=== PATIENT | male | born 1980 | race Two or more races ===

== ENCOUNTER 2018-11-13 11:20 | Emergency (ER) | payer OTHER ==
[~2018-11-13] VITALS: Ht 167.6 cm; Wt 108.9 kg
--- NOTE | 2018-11-13 11:26 | NUR ---
DR HARDIN AT BEDSIDE
--- NOTE | 2018-11-13 11:27 | NUR ---
DEEDEE, FROM [place], C/O BOTH ARM AND FACE TINGLING/NUMBNESS, HAVING ANXIETY ATTACK, TO ER BED 11, HOOKED TO MONITOR, CHANGED TO GOWN, PROVIDED W WARM BLANKET, AWAITING MD CLAYTON.
[2018-11-13 11:44] LABS: BASOPHILS % (AUTO) 0.6 % (0.0-2.0); EOSINOPHILS % (AUTO) 2.2 % (0.0-6.0); HEMATOCRIT 49 % (39-51); LYMPHOCYTES # (AUTO) 1.6 /CMM (0.8-4.8); LYMPHOCYTES % (AUTO) 26.4 % (20.0-44.0); MEAN CORPUSCULAR HGB CONC 35 g/dl (31.0-36.0); MEAN CORPUSCULAR VOLUME 92 fL (80-96); MONOCYTES # (AUTO) 0.5 /CMM (0.1-1.30); MONOCYTES % (AUTO) 8.8 % (2.0-12.0); NEUTROPHILS # (AUTO) 3.8 /CMM (1.8-8.9); PLATELET COUNT (AUTO) 219 /CMM (150-450); RED BLOOD CELL COUNT(AUTO) 5.32 MIL/uL (4.5-6.0); WHITE BLOOD COUNT (AUTO) 6.1 K/uL (4.3-11.0)
[2018-11-13 11:50] LABS: CALCIUM, SERUM 9.1 mg/dL (8.5-10.1); CARBON DIOXIDE 26 mmol/L (21-32); CHLORIDE 101 mmol/L (98-107); CREATININE 0.9 mg/dL (0.6-1.3); GLUCOSE 159 mg/dL (74-106); POTASSIUM 3.4 mmol/L (3.5-5.1); SODIUM SERUM 138 mmol/L (136-145); UREA NITROGEN, BLOOD 14 mg/dL (7-18)
[2018-11-13] MEDS: LORAZEPAM INJ 2 MG/ML VIAL IV ONE ×2 (12:30→12:39)
[2018-11-13] MEDS ORDERED: LORAZEPAM 1 MG TABLET ONE (12:37)
[2018-11-13] MEDS ORDERED: MULT-439 PO (14:32)
[2018-11-13] MEDS ORDERED: CARV12.5 PO (14:32)
[2018-11-13] MEDS ORDERED: METF-442 PO (14:32)
[2018-11-13] MEDS ORDERED: SITA100T PO (14:32)
[2018-11-13] MEDS ORDERED: ATOR20TA PO (14:32)
[2018-11-13] MEDS ORDERED: LOSA25TA27 PO (14:32)
[2018-11-13] MEDS ORDERED: BLOO-668 IN (14:32)
[2018-11-13] MEDS ORDERED: EMPA25TA PO (14:32)
[2018-11-13] MEDS ORDERED: ASPIRIN 325 MG TABLET ONE (14:56)
[2018-11-13] MEDS ORDERED: ASPIRIN 325 MG TABLET PO ONE (15:00)
--- NOTE | 2018-11-13 15:50 | NUR ---
called for tele bed
--- NOTE | 2018-11-13 17:30 | NUR ---
Patient does not wish to proceed with medical care recommended by Dr. HARDIN. Patient given information related to possible complications, up to and including , which could occur as a result of leaving the hospital at this time. Patient verbalizes understanding of risks involved due to leaving against medical advice. Patient has signed AMA form.
[2018-11-13 17:53] VITALS: BP 134/69
[2018-11-13] MEDS ORDERED: LORAZEPAM 1 MG TABLET PO PRN (18:00)
== END 2018-11-13 17:45 | disposition left against medical advice (07) ==
LOC: ER 11:20 → UNDOADMIN 17:27 → TELE 17:27 → ER 17:45
DX: G45.9 Transient cerebral ischemic attack, unspecified (principal); R51 Headache; I10 Essential (primary) hypertension; I25.2 Old myocardial infarction; E78.5 Hyperlipidemia, unspecified; E11.9 Type 2 diabetes mellitus without complications; F41.9 Anxiety disorder, unspecified; Z95.1 Presence of aortocoronary bypass graft; Z98.890 Other specified postprocedural states
CPT/HCPCS: 36415; 70450-TC; 71045-TC; 80048-TC; 84484-TC; 85025-TC; 85730-TC